=== PATIENT | male | born 1980 | race African-American/Black ===

== ENCOUNTER 2018-05-05 12:28 | Emergency (ER) | payer SELFPAY ==
[~2018-05-05] VITALS: Ht 188 cm; Wt 84.1 kg
[2018-05-05] MEDS ORDERED: HYDROCODONE/ACETAMINOPHEN 5-325 MG TABLET PO ONE (14:30)
[2018-05-05 14:39] VITALS: BP 142/97
== END 2018-05-05 15:44 | disposition home or self-care (01) ==
LOC: EMS 12:29
DX: M54.42 Lumbago with sciatica, left side (principal)
CPT/HCPCS: 99283